=== PATIENT | male | born 1970 | race Caucasian/White ===

== ENCOUNTER 2017-07-30 08:22 | Outpatient (CLI) | payer OTHER ==
[~2017-07-30 08:22] MED LIST: SEPTRA
== END 2017-07-30 08:45 | disposition home or self-care (01) ==
LOC: NUCLEAR 08:22 → EDBD 08:22 → NUCLEAR 08:45
DX: R07.89 Other chest pain (principal)
CPT/HCPCS: A9500; 93017; 78452